=== PATIENT | female | born 1990 | race Caucasian/White ===

== ENCOUNTER 2018-04-12 15:03 | Emergency (ER) | payer OTHER ==
[2018-04-12] MEDS: ONDANSETRON 4 MG ORAL DISINTEGRATING TAB (Q0162 PER 1MG) PO (15:50)
[2018-04-12] MEDS: NORCO, ANEXSIA 5/325MG TABLET (HYDROcodone/ACETAMINOPHEN) PO (15:50)
== END 2018-04-12 16:32 | disposition home or self-care (01) ==
LOC: M ED 15:03
DX: Z04.1 Encounter for examination and observation following transport accident (principal); S09.90XA Unspecified injury of head, initial encounter; S16.1XXA Strain of muscle, fascia and tendon at neck level, initial encounter; V43.62XA Car passenger injured in collision with other type car in traffic accident, initial encounter; Y92.410 Unspecified street and highway as the place of occurrence of the external cause; Z88.5 Allergy status to narcotic agent
CPT/HCPCS: Q0162

== ENCOUNTER 2018-06-06 15:43 | Emergency (ER) | payer SELFPAY, BC | END 2018-06-06 17:31 | disposition home or self-care (01) | LOC: M ED 15:43 | DX: M79.622 Pain in left upper arm (principal); Z98.890 Other specified postprocedural states; Z79.899 Other long term (current) drug therapy; Z88.5 Allergy status to narcotic agent | CPT/HCPCS: 73030 ==

== ENCOUNTER → 2018-09-10 | Outpatient (CLI) | payer BC ==
[~2018-09-10] MED LIST: ISOVUE-370 76% 100ML VIAL (Q9967) As Ordered
== END ==
LOC: M RADPRO 11:51
DX: N97.9 Female infertility, unspecified (principal)
CPT/HCPCS: 58340